=== PATIENT | male | born 1940 | race Caucasian/White ===

== ENCOUNTER 2016-12-16 05:02 | Day surgery (SDC) | payer OTHER ==
[~2016-12-16 05:02] MED LIST: ACTOS45 PO; ASAB PO; CORDARONE PO; COREG12 PO; COREG3 PO; CRESTOR20 MG PO; DIABETA5 PO; FLOMAX4 PO; GLUCOV5 PO; HCTZ25B PO; HYT5 PO; IMDUR30 PO; L20 PO; L40 PO; LANTUS SC; NEUR800 PO; NITROSTAT0.4 MG SL; PAX20 PO; PRILO PO; PRIN10 PO; PRINZIDE PO; PROSCAR5 PO; REG PO; SLOWMAG PO; SPIRO25 PO; VIB100 PO; VITAMIN D2000 UNIT PO
== END 2016-12-16 23:59 | disposition home or self-care (01) ==
LOC: SDC 05:02
PROVIDERS: Orthopaedic Surgery
PROC: 3E0R3BZ Introduction of Anesthetic Agent into Spinal Canal, Percutaneous Approach (ICD-10-PCS; 2016-12-16)
PROC: B01BYZZ Fluoroscopy of Spinal Cord using Other Contrast (ICD-10-PCS; 2016-12-16)
PROC: 3E0R33Z Introduction of Anti-inflammatory into Spinal Canal, Percutaneous Approach (ICD-10-PCS; principal; 2016-12-16 08:00)
DX: M54.16 Radiculopathy, lumbar region (principal); E11.9 Type 2 diabetes mellitus without complications; Z79.4 Long term (current) use of insulin; Z79.82 Long term (current) use of aspirin; Z79.899 Other long term (current) drug therapy; Z98.890 Other specified postprocedural states; Z90.49 Acquired absence of other specified parts of digestive tract
CPT/HCPCS: 82962; J1040; J2250; J3010; Q9967